=== PATIENT | female | born 1995 | race Caucasian/White ===

== ENCOUNTER 2024-02-19 10:33 | Observation (INO) | payer OTHER ==
[2024-02-19] MEDS: SODIUM CHLORIDE 0.9% 1,000 ML IV ONE (11:45)
[2024-02-19 11:49] VITALS: RESP 16
[2024-02-19 11:57] LABS: Appearance,Urine Clear (Clear); Bacteria,Urine Rare /hpf; Bilirubin,Urine Negative (Negative); Blood,Urine Negative (Negative); Color,Urine Colorless; Glucose,Urine (UA) Negative (Negative); Ketones,Urine Negative (Negative); Leukocyte Esterase,Urine Moderate (Negative); Nitrite,Urine Negative (Negative); PH, Urine 7.5 (5.0-8.0); Protein,Urine Negative (Negative); Specific Gravity,Urine 1.007 (1.001-1.035); Squamous Epithelial Cell,Urine 2 /hpf (0-4); Urobilinogen,Urine <2.0 mg/dL (<2.0); WBC,Urine 7 /hpf (0-5)
[2024-02-19 12:03] LABS: Basophils # (A) 0.1 k/uL (0-0.2); Basophils % (A) 1 %; Eosinophils # (A) 0.2 k/uL (0-0.7); Eosinophils % (A) 4 %; HCT 41.9 % (34.0-46.0); HGB 13.7 gm/dL (11.4-16.0); Lymphocytes # (A) 1.8 k/uL (1.0-4.8); Lymphocytes % (A) 35 %; MCH 30.1 pg (25.0-35.0); MCHC 32.7 g/dL (31.0-37.0); Mean Platelet Volume 7.6; Monocytes # (A) 0.3 k/uL (0-1.0); Monocytes % (A) 6 %; Neutrophils # (A) 2.6 k/uL (1.3-7.7); Neutrophils % (A) 52 %; Platelet Count 253 k/uL (150-450); RBC 4.56 m/uL (3.80-5.40); WBC 5.1 k/uL (3.8-10.6)
[2024-02-19 12:07] LABS: Amphetamine Screen,Urine Not Detected (NotDetected); Barbiturate Screen,Urine Not Detected (NotDetected); Benzodiazepines Screen,Urine Not Detected (NotDetected); Cocaine Screen,Urine Not Detected (NotDetected); Methadone Screen, Urine Detected (NotDetected); Opiate Screen,Urine Not Detected (NotDetected); Oxycodone Screen, Urine Not Detected (NotDetected); Phencyclidine Screen,Urine Not Detected (NotDetected); Tricyclic Antidepressant,Urine Not Detected (NotDetected); Urn Cannabinoid Scrn Not Detected (NotDetected)
[2024-02-19 12:12] LABS: ALT 105 U/L (4-34); AST 66 U/L (14-36); African American GFR (CKD) >90 (>60 ml/min/1.73 sqM); Albumin 4.4 g/dL (3.5-5.0); Alcohol <10 mg/dL; Alkaline Phosphatase 97 U/L (38-126); Anion Gap 5 mmol/L; Blood Urea Nitrogen 17 mg/dL (7-17); Calcium 9.9 mg/dL (8.4-10.2); Carbon Dioxide 30 mmol/L (22-30); Chloride 101 mmol/L (98-107); Glucose 98 mg/dL (74-99); Non-African American GFR(CKD) 81 (>60 ml/min/1.73 sqM); Potassium 5.1 mmol/L (3.5-5.1); Sodium 136 mmol/L (137-145); Total Bilirubin 0.7 mg/dL (0.2-1.3); Total Protein 7.6 g/dL (6.3-8.2)
--- NOTE | 2024-02-19 13:35 | ED ---
General Adult HPI - General Chief complaint: Neuro Symptoms/Deficit Stated complaint: [place] [facility] Time Seen by Provider: 02/19/24 10:41 Source: patient, RN notes reviewed Mode of arrival: ambulatory Limitations: no limitations - History of Present Illness Initial comments: 28-year-old female presents emergency department from [place] with chief complaint of lightheadedness, change in vision at times. Patient states this all started after being started on Intuniv at [place]. Patient is also on methadone. Patient states she delivered a baby recently and was sent to rehab. Patient denies any chest pain or palpitations. Patient states she just feels very lightheaded feels weak. Patient denies any prior thyroid disease. - Related Data Home Medications Medication Instructions Recorded Confirmed Acetaminophen [Tylenol] 650 mg PO Q4H 02/19/24 02/19/24 Calcium/Magnesium/Zinc/Vitamin D 1 tab PO TID PRN 02/19/24 02/19/24 Chlorpheniramine Maleate 4 mg PO Q4H PRN 02/19/24 02/19/24 [Chlor-Trimeton] Hyoscyamine Sulfate [Levsin] 0.125 mg PO QID PRN 02/19/24 02/19/24 Ibuprofen [Motrin Ib] 600 mg PO Q6H PRN 02/19/24 02/19/24 Melatonin 10 mg PO HS 02/19/24 02/19/24 Methadone HCl [Methadone Intensol] 110 mg PO DAILY 02/19/24 02/19/24 guanFACINE HCL [Intuniv] 2 mg PO HS 02/19/24 02/19/24 ondansetron HCL [Zofran] 8 mg PO Q6H PRN 02/19/24 02/19/24 traZODone HCL [Desyrel] 50 - 150 mg PO HS PRN 02/19/24 02/19/24 Allergies Allergy/AdvReac Type Severity Reaction Status Date / Time Penicillins AdvReac Rash/Hives Verified 02/19/24 12:22 Sulfa (Sulfonamide AdvReac Unknown Verified 02/19/24 12:22 Antibiotics) Review of Systems ROS Statement: Those systems with pertinent positive or pertinent negative responses have been documented in the HPI. ROS Other: All systems not noted in ROS Statement are negative. Past Medical History Past Medical History: No Reported History Past Surgical History: No Surgical Hx Reported Past Psychological History: ADD/ADHD Smoking Status: Current every day smoker Past Alcohol Use History: None Reported Past Drug Use History: Cocaine, Heroin General Exam Limitations: no limitations General appearance: alert, in no apparent distress Head exam: Present: atraumatic, normocephalic, normal inspection ENT exam: Present: normal exam, mucous membranes moist Neck exam: Present: normal inspection. Absent: tenderness, meningismus, lym phadenopathy Respiratory exam: Present: normal lung sounds bilaterally. Absent: respiratory distress, wheezes, rales, rhonchi, stridor Cardiovascular Exam: Present: normal rhythm, bradycardia, normal heart sounds. Absent: systolic murmur, diastolic murmur, rubs, gallop, clicks Course Vital Signs 02/19/24 02/19/24 10:37 11:47 Temperature 97.8 F 98.6 F Pulse Rate 58 L 52 L Respiratory 18 16 Rate Blood Pressure 92/53 92/58 O2 Sat by Pulse 97 98 Oximetry EKG Findings - EKG Comments: EKG Findings:: EKG performed at 11: 20 sinus bradycardia rate of 36 MT 160 QRS 105 QT/QTc 476/386. Repeat EKG 13: 04 sinus bradycardia with rate of 42 MT 166 QRS 96 QT/QTc 504/445 - EKG Results: EKG: interpreted by [facility] Medical Decision Making - Medical Decision Making Was pt. sent in by a medical professional or institution ([facility], STRUCTURER, urgent care, hospital, or fdc...) When possible be specific @ -[place] Did you speak to anyone other than the patient for history (EMS, parent, family, police, friend...)? What history was obtained from this source @ -No Did you review nursing and triage notes (agree or disagree)? Why? @ -I reviewed and agree with nursing and triage notes Were old charts reviewed (outside hosp., previous admission, EMS record, old EKG, old radiological studies, urgent care reports/EKG's, fdc records)? Report findings @ -No old charts were reviewed Differential Diagnosis (chest pain, altered mental status, abdominal pain women, abdominal pain men, vaginal bleeding, weakness, fever, dyspnea, syncope, headache, dizziness, GI bleed, back pain, seizure, CVA, palpatations, mental he alth, musculoskeletal)? @ -Differential Palpitations Ventricular arrhythmias, atrial arrhythmias, myocardial infarction, anemia, thyrotoxicosis, electrolyte imbalance, hypokalemia, pulmonary embolism, pulmonary disease, drugs, alcohol, anxiety, stress.... This is not meant to be an all-inclusive list. EKG interpreted by me (3pts min.). @ -As above X-rays interpreted by me (1pt min.). @ -None done CT interpreted by me (1pt min.). @ -None done U/S interpreted by me (1pt. min.). @ -None done What testing was considered but not performed or refused? (CT, X-rays, U/S, labs)? Why? @ -None What meds were considered but not given or refused? Why? @ -None Did you discuss the management of the patient with other professionals (professionals i.e. , PA, STRUCTURER, lab, RT, psych nurse, social economist, personnel security specialist, teacher, preventive medicine officer, casey saw operator)? Give summary @ -Dr. Noonan for admission Was smoking cessation discussed for >3mins.? @ -No Was critical care preformed (if so, how long)? @ -No Were there social determinants of health that impacted care today? How? (Homelessness, low income, unemployed, alcoholism, drug addiction, transportation, low edu. Level, literacy, decrease access to med. care, longterm, rehab)? @ -No Was there de-escalation of care discussed even if they declined (Discuss DNR or withdrawal of care, Hospice)? DNR status @ -No What co-morbidities impacted this encounter? (DM, HTN, Smoking, COPD, CAD, Cancer, CVA, ARF, Chemo, Hep., AIDS, mental health diagnosis, sleep apnea, m orbid obesity)? @ -None Was patient admitted / discharged? Hospital course, mention meds given and r oute, prescriptions, significant lab abnormalities, going to OR and other pertinent info. @ -Admitted patient presenting for dizziness, lightheadedness and bradycardia. Patient is symptomatic this more likely to be medication induced from Intuniv. Patient will be observed kept on the slide fasteners inspector. Patient was not given atropine at this time as it is more likely to be medication induced. Undiagnosed new problem with uncertain prognosis? @ -No Drug Therapy requiring intensive monitoring for toxicity (Heparin, Nitro, Insulin, Cardizem)? @ -No Were any procedures done? @ -No Diagnosis/symptom? @ -Bradycardia, medication reaction Acute, or Chronic, or Acute on Chronic? @ -Acute Uncomplicated (without systemic symptoms) or Complicated (systemic symptoms)? @ -Complicated Side effects of treatment? @ -No Exacerbation, Progression, or Severe Exacerbation? @ -No Poses a threat to life or bodily function? How? (Chest pain, [place], [place], pneumonia, PE, COPD, DKA, ARF, appy, cholecystitis, CVA, Diverticulitis, Homicidal, Suicidal, threat to staff... and all critical care pts) @ -No - Lab Data Result diagrams: 02/19/24 11:05 02/19/24 11:05 Lab Results 02/19/24 02/19/24 02/19/24 Range/Units 11:05 11:05 11:44 WBC 5.1 (3.8-10.6) k/uL RBC 4.56 (3.80-5.40) m/uL Hgb 13.7 (11.4-16.0) gm/dL Hct 41.9 (34.0-46.0) % MCV 92.0 (80.0-100.0) fL MCH 30.1 (25.0-35.0) pg MCHC 32.7 (31.0-37.0) g/dL RDW 13.0 (11.5-15.5) % Plt Count 253 (150-450) k/uL MPV 7.6 Neutrophils % 52 % Lymphocytes % 35 % Monocytes % 6 % Eosinophils % 4 % Basophils % 1 % Neutrophils # 2.6 (1.3-7.7) k/uL Lymphocytes # 1.8 (1.0-4.8) k/uL Monocytes # 0.3 (0-1.0) k/uL Eosinophils # 0.2 (0-0.7) k/uL Basophils # 0.1 (0-0.2) k/uL Sodium 136 L (137-145) mmol/L Potassium 5.1 (3.5-5.1) mmol/L Chloride 101 (98-107) mmol/L Carbon Dioxide 30 (22-30) mmol/L Anion Gap 5 mmol/L BUN 17 (7-17) mg/dL Creatinine 0.97 (0.52-1.04) mg/dL Est GFR (CKD-EPI)AfAm >90 (>60 ml/min/1.73 sqM) Est GFR (CKD-EPI)NonAf 81 (>60 ml/min/1.73 sqM) Glucose 98 (74-99) mg/dL Calcium 9.9 (8.4-10.2) mg/dL Total Bilirubin 0.7 (0.2-1.3) mg/dL AST 66 H (14-36) U/L ALT 105 H (4-34) U/L Alkaline Phosphatase 97 (38-126) U/L Total Protein 7.6 (6.3-8.2) g/dL Albumin 4.4 (3.5-5.0) g/dL TSH 1.300 (0.465-4.680) mIU/L Urine Color Colorless Urine Appearance Clear (Clear) Urine pH 7.5 (5.0-8.0) Ur Specific [place] 1.007 (1.001-1.035) Urine Protein Negative (Negative) Urine Glucose (UA) Negative (Negative) Urine Ketones Negative (Negative) Urine Blood Negative (Negative) Urine Nitrite Negative (Negative) Urine Bilirubin Negative (Negative) Urine Urobilinogen <2.0 (<2.0) mg/dL Ur Leukocyte Esterase Moderate H (Negative) Urine WBC 7 H (0-5) /hpf Ur Squamous Epith Cells 2 (0-4) /hpf Urine Bacteria Rare H (None) /hpf Urine Opiates Screen Not Detected (NotDetected) Ur Oxycodone Screen Not Detected (NotDetected) Urine Methadone Screen Detected H (NotDetected) Ur Barbiturates Screen Not Detected (NotDetected) U Tricyclic Antidepress Not Detected (NotDetected) Ur Phencyclidine Scrn Not Detected (NotDetected) Ur Amphetamines Screen Not Detected (NotDetected) U Methamphetamines Scrn Not Detected (NotDetected) U Benzodiazepines Scrn Not Detected (NotDetected) Urine Cocaine Screen Not Detected (NotDetected) U Marijuana (THC) Screen Not Detected (NotDetected) Serum Alcohol <10 mg/dL Disposition Clinical Impression: Bradycardia Disposition: ADMITTED IP TO THIS [facility] Condition: Fair Referrals: None,Stated [Primary Care Provider] - 1-2 days Time of Disposition: 13:35
[2024-02-19] MEDS ORDERED: NALOXONE 0.4 MG/ML 1 ML VIAL IV PRN (13:36)
[2024-02-19] MEDS: SODIUM CHLORIDE 0.9% 1,000 ML IV SCH (14:26)
[2024-02-19] MEDS: NICOTINE 21MG/24HR PATCH TRANSDERM STA (14:26)
--- NOTE | 2024-02-19 15:33 | P.HPIM ---
History of Present Illness H&P Date: 02/19/24 Patient is a 28-year-old female with history of opiate dependence, ADHD presenting from [place] for presyncopal episodes. She claims that she last used fentanyl 12 days ago and then went to rehab. She was seen by psychiatry in rehab, and started on Intuniv 5 days ago. Since then she has been having episodes where she feels tired and feels like passing out. She denies any falls. She claims that her last symptoms was this morning and last dose of fentanyl was last night. She denies any chest pain, shortness of breath, abdominal pain, nausea, vomiting, urinary or bowel complaints. She smokes 1 pack/day. She denies any alcohol use. In the ED, temperature was 97.8, pulse 58, respiratory rate 18, blood pressure 92/53, saturating 97% on room air. Initial EKG shows sinus bradycardia with rate of 42 and the second EKG also showed sinus bradycardia with heart rate of 36. Was independently interpreted. CBC unremarkable, BMP showed potassium 5.1, creatinine 0.97, TSH 1.3, AST 66, ALT 105, bili 0.7, urinalysis shows moderate leukocyte esterase, negative nitrates, urine toxicology positive for methadone. Patient admitted for observation for symptomatic bradycardia likely medication induced. Pertinent positives and negatives as discussed in HPI, a complete review of systems was performed and all other systems are negative. Patient seen and examined at bedside. Vital signs reviewed General: nontoxic, no distress, appears at stated age Derm: warm, dry Head: atraumatic, normocephalic, symmetric Eyes: EOMI, no lid lag, anicteric sclera, pupils equal round reactive to light ENT: Nose and ears atraumatic Neck: No thyromegaly, supple Mouth: no lip lesion, mucus membranes moist Cardiovascular: S1S2 reg, bradycardic, no murmur, no edema Lungs: clear to auscultation bilateral, no rhonchi, no rales, no wheeze, no accessory muscle use Abdominal: soft, nontender to palpation, no guarding, no appreciable organomegaly Ext: no gross muscle atrophy, muscle strength muscle strength 5 out of 5 in all 4 extremities, no contractures Neuro: CN II-XII grossly intact Psych: Alert, oriented, appropriate affect Assessment/Plan: Active: Symptomatic bradycardia -Likely in the setting of Intuniv use -Discontinue Intuniv -Continue to monitor on telemetry Chronic: Opiate dependence on methadone The patient is admitted with an anticipated less than 2 midnight stay as observation status for evaluation of symptomatic bradycardia. Surrogate decision-maker: Aunt CODE STATUS: Full code DVT prophylaxis: Low Darwin score Anticipated discharge date: 24 to [address]: Back to [place] A total of 55 minutes was spent on the care of this complex patient more than 50% of the time was spent in counseling and care coordination. Past Medical History Past Medical History: No Reported History Past Surgical History: No Surgical Hx Reported Past Psychological History: ADD/ADHD Smoking Status: Current every day smoker Past Alcohol Use History: None Reported Past Drug Use History: Cocaine, Heroin Medications and Allergies Home Medications Medication Instructions Recorded Confirmed Type Acetaminophen [Tylenol] 650 mg PO Q4H 02/19/24 02/19/24 History Calcium/Magnesium/Zinc/Vitamin D 1 tab PO TID PRN 02/19/24 02/19/24 History Chlorpheniramine Maleate 4 mg PO Q4H PRN 02/19/24 02/19/24 History [Chlor-Trimeton] Hyoscyamine Sulfate [Levsin] 0.125 mg PO QID PRN 02/19/24 02/19/24 History Ibuprofen [Motrin Ib] 600 mg PO Q6H PRN 02/19/24 02/19/24 History Melatonin 10 mg PO HS 02/19/24 02/19/24 History Methadone HCl [Methadone Intensol] 110 mg PO DAILY 02/19/24 02/19/24 History ondansetron HCL [Zofran] 8 mg PO Q6H PRN 02/19/24 02/19/24 History traZODone HCL [Desyrel] 50 - 150 mg PO HS PRN 02/19/24 02/19/24 History Allergies Allergy/AdvReac Type Severity Reaction Status Date / Time Penicillins AdvReac Rash/Hives Verified 02/19/24 12:22 Sulfa (Sulfonamide AdvReac Unknown Verified 02/19/24 12:22 Antibiotics) Physical Exam Vitals: Vital Signs Temp Pulse Resp BP Pulse Ox 02/19/24 11:47 98.6 F 52 L 16 92/58 98 02/19/24 10:37 97.8 F 58 L 18 92/53 97 Intake and Output 02/18/24 02/19/24 02/19/24 22:59 06:59 14:59 Other: Weight 81.647 kg Results CBC & Chem 7: 02/19/24 11:05 02/19/24 11:05 Labs: Abnormal Lab Results - Last 24 Hours (Table) 02/19/24 02/19/24 Range/Units 11:05 11:44 Sodium 136 L (137-145) mmol/L AST 66 H (14-36) U/L ALT 105 H (4-34) U/L Ur Leukocyte Esterase Moderate H (Negative) Urine WBC 7 H (0-5) /hpf Urine Bacteria Rare H (None) /hpf Urine Methadone Screen Detected H (NotDetected)
--- NOTE | 2024-02-19 15:34 | P.DS ---
Providers Date of admission: 02/19/24 13:24 Expected date of discharge: 02/19/24 Attending physician: Rad Noonan MD Primary care physician: Stated None Hospital Course: Discharge Diagnosis: Symptomatic bradycardia Opiate dependence on methadone Nicotine dependence Hospital Course: 28-year-old female with history of opiate dependence, ADHD presenting from [place] for presyncopal episodes. She claims that she last used fentanyl 12 days ago and then went to rehab. She was seen by psychiatry in rehab, and started on Intuniv 5 days ago. Since then she has been having episodes where she feels tired and feels like passing out. She denies any falls. She claims that her last symptoms was this morning and last dose of fentanyl was last night. In the ED, temperature was 97.8, pulse 58, respiratory rate 18, blood pressure 92/53, saturating 97% on room air. Initial EKG shows sinus bradycardia with rate of 42 and the second EKG also showed sinus bradycardia with heart rate of 36. Was independently interpreted. CBC unremarkable, BMP showed potassium 5.1, creatinine 0.97, TSH 1.3, AST 66, ALT 105, bili 0.7, urinalysis shows moderate leukocyte esterase, negative nitrates, urine toxicology positive for methadone. Patient admitted for observation for symptomatic bradycardia likely medication induced. Patient is now asymptomatic, and would like to go back to [place]. She has been discharged. Advised to no longer take Intuniv. Patient seen and examined at bedside. Vital signs reviewed and stable. General: Nontoxic, no distress, appears at stated age Derm: Warm, dry Head: Atraumatic, normocephalic, symmetric Eyes: EOMI, no lid lag, anicteric sclera Mouth: No lip lesion, mucus membranes moist Cardiovascular: S1S2 reg, no murmur Lungs: CTA bilateral, no rhonchi, no rales, no accessory muscle use Abdominal: Soft, nontender to palpation, no guarding, no appreciable organomegaly Ext: No gross muscle atrophy, no edema, no contractures Neuro: CN II-XI grossly intact, no focal neuro deficits Psych: Alert, oriented, appropriate affect A total of 33 minutes of time were spent preparing this complex discharge summary. Patient was discharged on 03/10 at 1531. Patient Condition at Discharge: Stable Plan - Discharge Summary New Discharge Prescriptions: Continue ondansetron HCL [Zofran] 8 mg PO Q6H PRN PRN Reason: Nausea traZODone HCL [Desyrel] 50 - 150 mg PO HS PRN PRN Reason: Insomnia Ibuprofen [Motrin Ib] 600 mg PO Q6H PRN PRN Reason: Pain Calcium/Magnesium/Zinc/Vitamin D 1 tab PO TID PRN PRN Reason: muscle cramps Melatonin 10 mg PO HS Hyoscyamine Sulfate [Levsin] 0.125 mg PO QID PRN PRN Reason: IBS Chlorpheniramine Maleate [Chlor-Trimeton] 4 mg PO Q4H PRN PRN Reason: Allergy Symptoms Methadone HCl [Methadone Intensol] 110 mg PO DAILY Acetaminophen [Tylenol] 650 mg PO Q4H Discontinued guanFACINE HCL [Intuniv] 2 mg PO HS Discharge Medication List Acetaminophen [Tylenol] 650 mg PO Q4H 02/19/24 [History] Calcium/Magnesium/Zinc/Vitamin D 1 tab PO TID PRN 02/19/24 [History] Chlorpheniramine Maleate [Chlor-Trimeton] 4 mg PO Q4H PRN 02/19/24 [History] Hyoscyamine Sulfate [Levsin] 0.125 mg PO QID PRN 02/19/24 [History] Ibuprofen [Motrin Ib] 600 mg PO Q6H PRN 02/19/24 [History] Melatonin 10 mg PO HS 02/19/24 [History] Methadone HCl [Methadone Intensol] 110 mg PO DAILY 02/19/24 [History] ondansetron HCL [Zofran] 8 mg PO Q6H PRN 02/19/24 [History] traZODone HCL [Desyrel] 50 - 150 mg PO HS PRN 02/19/24 [History] Follow up Appointment(s)/Referral(s): None,Stated [Primary Care Provider] - 1-2 days Patient Instructions/Handouts: Bradycardia (DC) Activity/Diet/Wound Care/Special Instructions: Please see PCP. Avoid use of Intuniv. If you have further symptoms related to low heart rate, such as passing out, lightheadedness, chest pain or shortness of breath, please seek medical assistance. Discharge Disposition: OTHER INSTITUTION NOT DEFINED
[2024-02-19] MEDS: ACETAMINOPHEN TAB 325 MG TAB PO SCH (16:01)
[2024-02-19 16:25] VITALS: BP 89/56; PULSE 43; TEMP 98
[2024-02-19] MEDS ORDERED: MELATONIN 5 MG TABLET PO SCH (21:00)
[2024-02-20] MEDS ORDERED: METHADONE 10 MG TAB PO SCH (09:00)
== END 2024-02-19 16:54 | disposition other institution (70) ==
LOC: EC 10:33 → 6NMEDSUR 13:24
PROVIDERS: ADMIT Student in an Organized Health Care Education/Training Program; ATTEND Student in an Organized Health Care Education/Training Program
DX: R00.1 Bradycardia, unspecified (principal); F11.20 Opioid dependence, uncomplicated; F90.9 Attention-deficit hyperactivity disorder, unspecified type; H53.8 Other visual disturbances; R53.1 Weakness; F17.210 Nicotine dependence, cigarettes, uncomplicated; Z79.899 Other long term (current) drug therapy; Z88.0 Allergy status to penicillin; Z88.2 Allergy status to sulfonamides
CPT/HCPCS: 36415; 80053; 80306; 80320; 81001; 84443; 85025; 93005; 96360; 96361; 99285